=== PATIENT | male | born 1975 | race Caucasian/White ===

== ENCOUNTER 2017-11-12 11:10 | Emergency (ER) | payer MEDICAID, OTHER ==
[~2017-11-12] VITALS: Ht 182.9 cm; Wt 76.7 kg
[~2017-11-12 11:10] MED LIST: HYDR-565 PO; NO HOME MEDS; [UNRECOGNIZED DRUG - CODE] PO
[2017-11-12 11:28] VITALS: BP 124/79
== END 2017-11-12 15:10 | disposition left against medical advice (07) ==
LOC: ER 11:10
DX: S51.851A Open bite of right forearm, initial encounter (principal); W54.0XXA Bitten by dog, initial encounter; Y93.9 Activity, unspecified; Y92.89 Other specified places as the place of occurrence of the external cause; Y99.8 Other external cause status; Z53.21 Procedure and treatment not carried out due to patient leaving prior to being seen by health care provider

== ENCOUNTER 2019-01-07 14:09 | Inpatient (IN) | payer OTHER ==
[~2019-01-07] VITALS: Ht 182.9 cm; Wt 81.8 kg
[~2019-01-07 14:09] MED LIST changes: +HYDR-4353 PO; -HYDR-565 PO
[2019-01-07 14:51] LABS: BASOPHILS # (AUTO) 0.1 X10'3 (0-0.2); BASOPHILS % (AUTO) 0.4 % (0-1); EOSINOPHILS # (AUTO) 0.2 X10'3 (0-0.9); EOSINOPHILS % (AUTO) 1.2 % (0-6); HEMATOCRIT 40.6 % (42.0-52.0); HEMOGLOBIN 13.6 g/dl (14.0-17.9); LYMPHOCYTES # (AUTO) 1.8 X10'3 (1.1-4.8); MEAN CORPUSCULAR HEMOGLOBIN 29.5 PG (27.0-31.0); MEAN CORPUSCULAR HGB CONC 33.5 g/dL (33.0-36.5); MONOCYTES # (AUTO) 1.2 X10'3 (0-0.9); MONOCYTES % (AUTO) 8.6 % (2-12); NEUTROPHILS # (AUTO) 10.8 X10'3 (1.8-7.7); NEUTROPHILS % (AUTO) 76.8 % (42-75); PLATELET COUNT 358 X10'3 (140-440); RED BLOOD COUNT 4.61 X10'6 (4.70-6.10); RED CELL DISTRIBUTION WIDTH 12.8 % (11.5-14.5)
[2019-01-07 15:00] LABS: ALANINE AMINOTRANSFERASE 22 U/L (12-78); ALBUMIN 3.2 G/DL (3.4-5.0); ALBUMIN/GLOBULIN RATIO 0.7 (1.1-1.5); ALKALINE PHOSPHATASE 80 IU/L (46-116); ANION GAP 6 (8-16); ASPARTATE AMINO TRANSFERASE 13 U/L (10-37); BILIRUBIN,TOTAL 0.3 MG/DL (0.1-1.0); BLOOD UREA NITROGEN 23 MG/DL (7-18); BUN/CREATININE RATIO 23.7 (5.4-32.0); CALCIUM 9.1 MG/DL (8.5-10.1); CHLORIDE 100 MMOL/L (99-107); CREATININE 0.97 MG/DL (0.60-1.10); GLUCOSE 124 MG/DL (70-104); POTASSIUM 4.4 MMOL/L (3.5-5.1); SODIUM 137 MMOL/L (135-145); TOTAL CARBON DIOXIDE 31.1 MMOL/L (24-32); TOTAL PROTEIN 7.6 G/DL (6.4-8.2); eGFR 84 ML/MIN
[2019-01-07 15:22] LABS: PARTIAL THROMBOPLASTIN TIME 31 SECONDS (22-32)
[2019-01-07] MEDS ORDERED: vancomycin/NS 1 GM ADD-VANTAGE 250 ML IV ONE (15:45)
--- NOTE | 2019-01-07 16:04 | NUR ---
culture obtained left foot small toe, sent to lab
[2019-01-07] MEDS ORDERED: magnesium Cl slow-release 64mg tablet PO PRN (16:15)
[2019-01-07] MEDS ORDERED: HYDROcodone/acetaminophen 5mg/325mg tablet PO PRN (16:15)
[2019-01-07] MEDS ORDERED: magnesium hydroxide 30ml (MOM) UD suspension PO PRN (16:15)
[2019-01-07] MEDS ORDERED: mag hydrox/Alum hydrox/simeth 30ml oral suspension PO PRN (16:15)
[2019-01-07] MEDS ORDERED: magnesium 2GM in 50ml NS 50 ML IV PRN (16:15)
[2019-01-07] MEDS ORDERED: magnesium 4gm in 100ml NS 100 ML IV PRN (16:15)
[2019-01-07] MEDS ORDERED: ondansetron/PF 4mg/2ml inj IV PRN (16:15)
[2019-01-07] MEDS ORDERED: potassium CL 10mEq/100ml bag 100 ML IV PRN ×2 (16:15)
[2019-01-07] MEDS ORDERED: acetaminophen 325mg tablet PO PRN ×2 (16:15)
[2019-01-07] MEDS ORDERED: potassium Cl 20 mEq SR tablet PO PRN ×2 (16:15)
[2019-01-07] MEDS: K and/or MAG REPLACEMENT MC SCH (16:15)
[2019-01-07] MEDS ORDERED: morphine 2 MG/ML inj. syringe IV PRN (16:15)
[2019-01-07 17:04] LABS: CLARITY,URINE CLEAR (Clear); COLOR,URINE YELLOW (Yellow); GLUCOSE, URINE NEGATIVE (Neg); KETONES,URINE NEGATIVE (Neg); LEUKOCYTE ESTERASE ,URINE NEGATIVE (Neg); NITRITES, URINE NEGATIVE (Neg); OCCULT BLOOD,URINE MODERATE (Neg); PROTEIN,URINE NEGATIVE (Neg); UROBILINOGEN,URINE 0.2 E.U/dL (0.2-1.0)
[2019-01-07 17:05] LABS: HEMOGLOBIN A1C 5.4 % (4.5-6.2)
[2019-01-07 17:16] LABS: UA COLLECTION TYPE VOIDED
[2019-01-07 17:19] LABS: BACTERIA,URINE NONE SEEN /HPF (Neg); MUCUS STRANDS MODERATE /LPF (Neg); SQUAMOUS EPITHELIAL CELL,UR FEW /LPF (FEW); WBC,URINE 0-4 /HPF (0-4)
[2019-01-07] MEDS: normal saline 1000ml 1,000 ML IV SCH (17:47)
--- NOTE | 2019-01-07 18:12 | NUR ---
pt being released from police custudy, [facility]
[2019-01-07 18:36] LABS: URINE AMPHETAMINE SCREEN NEGATIVE (Neg); URINE BARBITUATE SCREEN NEGATIVE (Neg); URINE BENZODIAZEPINES SCREEN NEGATIVE (Neg); URINE CANNABINOID SCREEN NEGATIVE (Neg); URINE COCAINE SCREEN NEGATIVE (Neg); URINE METHADONE SCREEN NEGATIVE (Neg); URINE OPIATE SCREEN NEGATIVE (Neg); URINE PHENCYCLIDINE SCREEN NEGATIVE (Neg)
[2019-01-07] MEDS: morphine 2 MG/ML inj. syringe IV PRN ×2 (18:43→22:49)
[2019-01-07 20:00] VITALS: BP 156/100
[2019-01-07] MEDS: heparin, porcine 5000 units/ml vial SQ SCH (20:06)
[2019-01-07] MEDS: HYDROcodone/acetaminophen 10/325mg tab PO PRN (20:16)
[2019-01-07] MEDS: cefepime 1GM/NS ADD-VANTAGE 100 ML IV SCH ×2 (20:50→23:57)
[2019-01-07 22:11] VITALS: BP 136/82
--- NOTE | 2019-01-07 23:57 | NUR ---
Spoke with pharmacist regarding retiming Maxipime because first dose was not given until 2100 when med was scheduled for 1615. the Pharmacist stated they don't like to retime meds to hold midnight dose and resume schedule as normal
[2019-01-08] VITALS (9 sets, daily range): BP systolic 108–160; BP diastolic 57–100
[2019-01-08] MEDS: VANCOmycin 1250MG/NS 250ml Bag 250 ML IV SCH ×3 (00:11→16:00)
[2019-01-08] MEDS: HYDROcodone/acetaminophen 10/325mg tab PO PRN ×4 (01:11→20:23)
[2019-01-08] MEDS: normal saline 1000ml 1,000 ML IV SCH ×3 (02:15→22:15)
[2019-01-08] MEDS: morphine 2 MG/ML inj. syringe IV PRN ×3 (03:15→16:49)
--- NOTE | 2019-01-08 06:16 | NUR ---
Gave report to Irma CARDONA pt is resting on RA in no apparent distress, call light and items of freq use within reach.
--- NOTE | 2019-01-08 06:17 | NUR ---
Patient in room ORTHO 4011. I have received report from Reina CARDONA and had the opportunity to ask questions and assume patient care.
[2019-01-08 06:19] LABS: BASOPHILS # (AUTO) 0.1 X10'3 (0-0.2); BASOPHILS % (AUTO) 0.7 % (0-1); EOSINOPHILS # (AUTO) 0.3 X10'3 (0-0.9); EOSINOPHILS % (AUTO) 2.1 % (0-6); HEMOGLOBIN 12.1 g/dl (14.0-17.9); LYMPHOCYTES # (AUTO) 3.2 X10'3 (1.1-4.8); LYMPHOCYTES % (AUTO) 24.7 % (21-51); MEAN CORPUSCULAR HEMOGLOBIN 29.5 PG (27.0-31.0); MEAN CORPUSCULAR HGB CONC 33.7 g/dL (33.0-36.5); MEAN CORPUSCULAR VOLUME 87.4 FL (78-98); MEAN PLATELET VOLUME 8.2 FL (7.4-10.4); MONOCYTES # (AUTO) 1.5 X10'3 (0-0.9); MONOCYTES % (AUTO) 11.3 % (2-12); NEUTROPHILS % (AUTO) 61.2 % (42-75); PLATELET COUNT 347 X10'3 (140-440); RED BLOOD COUNT 4.11 X10'6 (4.70-6.10); RED CELL DISTRIBUTION WIDTH 12.4 % (11.5-14.5)
[2019-01-08 06:37] LABS: ALANINE AMINOTRANSFERASE 21 U/L (12-78); ALBUMIN 2.8 G/DL (3.4-5.0); ALBUMIN/GLOBULIN RATIO 0.8 (1.1-1.5); ALKALINE PHOSPHATASE 77 IU/L (46-116); ANION GAP 8 (8-16); ASPARTATE AMINO TRANSFERASE 18 U/L (10-37); BILIRUBIN,TOTAL 0.2 MG/DL (0.1-1.0); BLOOD UREA NITROGEN 18 MG/DL (7-18); BUN/CREATININE RATIO 18.2 (5.4-32.0); CALCIUM 8.6 MG/DL (8.5-10.1); CHLORIDE 102 MMOL/L (99-107); CREATININE 0.99 MG/DL (0.60-1.10); GLUCOSE 85 MG/DL (70-104); MAGNESIUM 1.8 MG/DL (1.5-2.4); PHOSPHORUS 3.6 MG/DL (2.3-4.5); POTASSIUM 3.6 MMOL/L (3.5-5.1); SODIUM 139 MMOL/L (135-145); TOTAL CARBON DIOXIDE 28.7 MMOL/L (24-32); TOTAL PROTEIN 6.5 G/DL (6.4-8.2); eGFR 82 ML/MIN
[2019-01-08] MEDS: cefepime 1GM/NS ADD-VANTAGE 100 ML IV SCH ×2 (07:15→16:13)
[2019-01-08] MEDS: K and/or MAG REPLACEMENT MC SCH (08:00)
[2019-01-08] MEDS: heparin, porcine 5000 units/ml vial SQ SCH ×2 (08:00→20:22)
--- NOTE | 2019-01-08 08:30 | NUR ---
Called [facility] concerned if patient was still in custody due to patient being admitted in handcuffs per notes, Patient is a flight risk wanting a cigarette. The [facility] stated he was not in custody.
[2019-01-08] MEDS: LORazepam 1 MG tablet PO PRN ×2 (09:03→16:13)
[2019-01-08] MEDS: diphenhydrAMINE 25mg capsule PO PRN ×2 (09:07→16:49)
--- NOTE | 2019-01-08 11:28 | NUR ---
Pt admit with sepsis secondary to the left foot cellulitis. Ortho surgeon consulted s/p MRI with findings of osteomyelitis of the small toe phalanges. To go to OR for left small toe amputation. Pt with regular diet order with documented 100% PO intake meeting nutrient needs. Will continue to follow and monitor need for ONS post-op. Addendum: 01/08/19 at [address] Amended: Links added.
[2019-01-08] MEDS ORDERED: ringers solution, lacted 1,000 ML IV SCH (13:46)
[2019-01-08] MEDS ORDERED: proCHLORperazine 10 MG/2 ml inj IV PRN (13:50)
[2019-01-08] MEDS ORDERED: meperidine/PF 25mg/ml syringe IV PRN ×3 (13:50)
[2019-01-08] MEDS ORDERED: morphine 4 MG/ML inj SYRINge IV PRN ×2 (13:50)
[2019-01-08] MEDS ORDERED: ondansetron/PF 4mg/2ml inj IV PRN (13:50)
[2019-01-08] MEDS ORDERED: BUPIVAcaine/PF 2.5 mg/ml (0.25%) 30ml vial ONE (16:07)
[2019-01-08] MEDS ORDERED: dexamethasone sod phosphate 10mg/ml inj ONE (17:00)
[2019-01-08] MEDS ORDERED: sevoflurane 250ml liquid IH ONE (17:00)
[2019-01-08] MEDS ORDERED: ondansetron/PF 4mg/2ml inj ONE (17:00)
[2019-01-08] MEDS ORDERED: midazolam 2 mg/2 ml injection ONE (17:08)
[2019-01-08] MEDS ORDERED: fentaNYL/PF 50MCG/1 ML 2ML syringe ONE (17:08)
[2019-01-08] MEDS ORDERED: LIDOcaine 2% (20mg/ml) 5ml vial ONE (17:09)
[2019-01-08] MEDS ORDERED: propofol inj 20 ML IV ONE (17:09)
[2019-01-08] MEDS ORDERED: ketorolac trometh. 30mg/ml inj. ONE (17:38)
--- NOTE | 2019-01-08 17:53 | NUR ---
Received from OR via , accompanied by Anesthesiologist DR VAZQUEZ and report given by Anesthesiolgist. AWAKENS TO VOICE. VITALS STABLE. DRESSING DI. SEUN PAIN. TOES WARM AND PINK.
--- NOTE | 2019-01-08 18:00 | NUR ---
Report received from Recovery room nurse and pt arrived asleep. 2 L NC, IV right arm with IV fluids going. Left foot wrapped in Mckay wrap pt able to move great toe. VS started. Addendum: 01/09/19 at 0520 by Bobbi Sawyer RN Amended: Links added.
[2019-01-08] MEDS ORDERED: cefepime 1GM/NS ADD-VANTAGE 100 ML IV ONE (18:30)
--- NOTE | 2019-01-08 18:35 | NUR ---
Problems reprioritized. Patient report given, questions answered & plan of care reviewed with Bobbi CARDONA.
--- NOTE | 2019-01-08 18:43 | NUR ---
Report called to receiving nurse. Transferred via BED Belongings . Special Issues communicated to receiving nurse. AWAKE AND ORIENTED. VITALS STABLE DRESSING DI. SEUN PAIN. TO SURGICAL RM 4014R AT THIS TIME.
[2019-01-08] MEDS: lactobacillus rhamnosus 10,000 MMU CELLS/CAPSULE PO SCH (20:22)
[2019-01-08] MEDS ORDERED: VANCOMYCIN LEVEL IV ONE (23:30)
[2019-01-09] MEDS: cefepime 1GM/NS ADD-VANTAGE 100 ML IV SCH ×3 (00:03→16:12)
[2019-01-09] MEDS: VANCOmycin 1250MG/NS 250ml Bag 250 ML IV SCH ×3 (00:44→17:04)
[2019-01-09 02:00] VITALS: BP 118/61
[2019-01-09] MEDS: HYDROcodone/acetaminophen 10/325mg tab PO PRN ×5 (04:13→20:03)
[2019-01-09 06:00] VITALS: BP 150/97
--- NOTE | 2019-01-09 06:28 | NUR ---
Problems reprioritized. Patient report given, questions answered & plan of care reviewed with Irma CARDONA. Addendum: 01/09/19 at 0628 by Bobbi Sawyer RN Amended: Links added.
[2019-01-09 06:40] LABS: BASOPHILS # (AUTO) 0.1 X10'3 (0-0.2); BASOPHILS % (AUTO) 0.5 % (0-1); EOSINOPHILS % (AUTO) 0 % (0-6); HEMATOCRIT 38.3 % (42.0-52.0); HEMOGLOBIN 12.8 g/dl (14.0-17.9); LYMPHOCYTES # (AUTO) 1.4 X10'3 (1.1-4.8); LYMPHOCYTES % (AUTO) 12.4 % (21-51); MEAN CORPUSCULAR HGB CONC 33.3 g/dL (33.0-36.5); MEAN CORPUSCULAR VOLUME 87.2 FL (78-98); MEAN PLATELET VOLUME 8.1 FL (7.4-10.4); MONOCYTES # (AUTO) 0.2 X10'3 (0-0.9); MONOCYTES % (AUTO) 2.2 % (2-12); NEUTROPHILS # (AUTO) 9.4 X10'3 (1.8-7.7); NEUTROPHILS % (AUTO) 84.9 % (42-75); PLATELET COUNT 397 X10'3 (140-440); RED BLOOD COUNT 4.39 X10'6 (4.70-6.10); RED CELL DISTRIBUTION WIDTH 12.6 % (11.5-14.5); WHITE BLOOD COUNT 11.1 X10'3 (4.5-11.0)
--- NOTE | 2019-01-09 06:58 | NUR ---
Patient in room ORTHO 4013. I have received report from Bobbi CARDONA and had the opportunity to ask questions and assume patient care.
[2019-01-09 07:03] LABS: ALANINE AMINOTRANSFERASE 21 U/L (12-78); ALBUMIN 2.7 G/DL (3.4-5.0); ALBUMIN/GLOBULIN RATIO 0.7 (1.1-1.5); ALKALINE PHOSPHATASE 73 IU/L (46-116); ANION GAP 8 (8-16); ASPARTATE AMINO TRANSFERASE 14 U/L (10-37); BILIRUBIN,TOTAL 0.3 MG/DL (0.1-1.0); BLOOD UREA NITROGEN 18 MG/DL (7-18); BUN/CREATININE RATIO 21.2 (5.4-32.0); CALCIUM 8.8 MG/DL (8.5-10.1); CHLORIDE 103 MMOL/L (99-107); CREATININE 0.85 MG/DL (0.60-1.10); GLUCOSE 151 MG/DL (70-104); MAGNESIUM 1.9 MG/DL (1.5-2.4); PHOSPHORUS 3.3 MG/DL (2.3-4.5); POTASSIUM 4.3 MMOL/L (3.5-5.1); SODIUM 137 MMOL/L (135-145); TOTAL CARBON DIOXIDE 25.9 MMOL/L (24-32); TOTAL PROTEIN 6.8 G/DL (6.4-8.2); eGFR > 90 ML/MIN
[2019-01-09] MEDS: heparin, porcine 5000 units/ml vial SQ SCH ×2 (07:41→20:03)
[2019-01-09] MEDS: lactobacillus rhamnosus 10,000 MMU CELLS/CAPSULE PO SCH ×2 (07:42→20:03)
[2019-01-09] MEDS: K and/or MAG REPLACEMENT MC SCH (08:00)
[2019-01-09] MEDS: normal saline 1000ml 1,000 ML IV SCH ×2 (08:15→20:07)
[2019-01-09 10:00] VITALS: BP_SYST 125; BP_SYST 131; BP_DIAS 77; BP_DIAS 88
[2019-01-09] MEDS: LORazepam 1 MG tablet PO PRN (11:04)
--- NOTE | 2019-01-09 14:47 | NUR ---
Patient unhooked himself from the IV. Hooked back up to IV. This is the third time his IV has been unhooked from him for no reason.
[2019-01-09 18:00] VITALS: BP 119/60
--- NOTE | 2019-01-09 18:17 | NUR ---
Problems reprioritized. Patient report given, questions answered & plan of care reviewed with KRISTIN CARDONA.
--- NOTE | 2019-01-09 18:39 | NUR ---
Patient in room ORTHO 4013. I have received report from BRENDAN Solis and had the opportunity to ask questions and assume patient care. Addendum: 01/09/19 at 1839 by Lindsey Talavera RN Amended: Links added.
--- NOTE | 2019-01-09 21:26 | NUR ---
patient left AMA, Dr. Lance is aware, explained risks and consequences in leaving the hospital at this time. IV d/c and patient left with belongings.
[2019-01-12] MEDS ORDERED: HYDR-4383 PO (11:33)
[2019-01-12] MEDS ORDERED: AMOX-580 PO (11:33)
== END 2019-01-09 21:30 | disposition left against medical advice (07) | DRG 854 ==
LOC: ER 14:10 → EEVIPCON 20:37 → ORTHO 4S 20:37
PROVIDERS: ADMIT Family Medicine; ATTEND Family Medicine
PROC: 0Y6Y0Z0 Detachment at Left 5th Toe, Complete, Open Approach (ICD-10-PCS; principal; 2019-01-08 17:00)
DX: A41.9 Sepsis, unspecified organism (principal); L02.612 Cutaneous abscess of left foot; I96 Gangrene, not elsewhere classified; M86.172 Other acute osteomyelitis, left ankle and foot; F15.10 Other stimulant abuse, uncomplicated; F17.210 Nicotine dependence, cigarettes, uncomplicated; Z53.21 Procedure and treatment not carried out due to patient leaving prior to being seen by health care provider; L03.032 Cellulitis of left toe; M65.862 Other synovitis and tenosynovitis, left lower leg; M79.5 Residual foreign body in soft tissue; Z86.14 Personal history of Methicillin resistant Staphylococcus aureus infection; Z88.7 Allergy status to serum and vaccine; Z71.6 Tobacco abuse counseling; Z71.51 Drug abuse counseling and surveillance of drug abuser
CPT/HCPCS: 96365; 96366; 96372; 99285; Z7506; 36415; 73630; 73721; 80053; 80202; 80305; 81001; 82948; 83036; 83605; 83735; 84100; 84145; 85025; 85610; 85730; 87040; 87070; 87077; 87081; 87186; A4215; A4618; A6222; A6446; A6449; A7000; G0378; J0692; J1100; J1644; J1885; J2001; J2250; J2270; J2405; J2704; J3010; J3370; J3490; J7030; J7120; Q0163

== ENCOUNTER 2019-01-26 22:17 | Emergency (ER) | payer MEDICAID ==
[~2019-01-26] VITALS: Ht 182.9 cm; Wt 77.0 kg
[~2019-01-26 22:17] MED LIST changes: +AMOX-580 PO; -HYDR-4353 PO; +HYDR-4383 PO; -NO HOME MEDS; -[UNRECOGNIZED DRUG - CODE] PO
[2019-01-26 23:59] LABS: BASOPHILS # (AUTO) 0.1 X10'3 (0-0.2); BASOPHILS % (AUTO) 0.4 % (0-1); EOSINOPHILS # (AUTO) 0.1 X10'3 (0-0.9); EOSINOPHILS % (AUTO) 0.4 % (0-6); HEMATOCRIT 34.7 % (42.0-52.0); HEMOGLOBIN 11.8 g/dl (14.0-17.9); LYMPHOCYTES # (AUTO) 1.3 X10'3 (1.1-4.8); LYMPHOCYTES % (AUTO) 10.3 % (21-51); MEAN CORPUSCULAR HEMOGLOBIN 29.4 PG (27.0-31.0); MEAN CORPUSCULAR VOLUME 86.4 FL (78-98); MEAN PLATELET VOLUME 8.2 FL (7.4-10.4); MONOCYTES # (AUTO) 0.9 X10'3 (0-0.9); NEUTROPHILS # (AUTO) 10.2 X10'3 (1.8-7.7); NEUTROPHILS % (AUTO) 81.9 % (42-75); PLATELET COUNT 269 X10'3 (140-440); RED BLOOD COUNT 4.02 X10'6 (4.70-6.10); RED CELL DISTRIBUTION WIDTH 12.7 % (11.5-14.5); WHITE BLOOD COUNT 12.5 X10'3 (4.5-11.0)
[2019-01-27 00:16] LABS: ALANINE AMINOTRANSFERASE 22 U/L (12-78); ALBUMIN 3.4 G/DL (3.4-5.0); ALBUMIN/GLOBULIN RATIO 0.9 (1.1-1.5); ALKALINE PHOSPHATASE 73 IU/L (46-116); ANION GAP 8 (8-16); ASPARTATE AMINO TRANSFERASE 10 U/L (10-37); BILIRUBIN,TOTAL 0.5 MG/DL (0.1-1.0); BLOOD UREA NITROGEN 13 MG/DL (7-18); BUN/CREATININE RATIO 13.4 (5.4-32.0); CALCIUM 8.8 MG/DL (8.5-10.1); CHLORIDE 104 MMOL/L (99-107); CREATININE 0.97 MG/DL (0.60-1.10); GLUCOSE 86 MG/DL (70-104); POTASSIUM 3.6 MMOL/L (3.5-5.1); SODIUM 139 MMOL/L (135-145); TOTAL CARBON DIOXIDE 26.9 MMOL/L (24-32); TOTAL PROTEIN 7.2 G/DL (6.4-8.2); eGFR 84 ML/MIN
--- NOTE | 2019-01-27 00:54 | NUR ---
Patient and family updated on POC and wait time. Patient requests a blanket wich is provided.
[2019-01-27] MEDS ORDERED: ondansetron 4mg rapidly disintigrating tab PO ONE (01:25)
[2019-01-27] MEDS ORDERED: DOXYCYCLINE 100MG CAPSULE PO STA (01:25)
[2019-01-27] MEDS ORDERED: cephalexin 250mg capsule PO ONE (01:25)
[2019-01-27] MEDS ORDERED: CEPH-572 PO (01:41)
[2019-01-27] MEDS ORDERED: ONDA8TAB6 PO (01:41)
[2019-01-27] MEDS ORDERED: DOXY100C43 PO (01:41)
[2019-01-27 02:11] VITALS: BP 142/83
== END 2019-01-27 02:13 | disposition home or self-care (01) ==
LOC: ER 22:18
DX: L03.032 Cellulitis of left toe (principal); F15.90 Other stimulant use, unspecified, uncomplicated; F10.99 Alcohol use, unspecified with unspecified alcohol-induced disorder; Z88.7 Allergy status to serum and vaccine; Z79.899 Other long term (current) drug therapy; Y90.9 Presence of alcohol in blood, level not specified
CPT/HCPCS: 36415; 73660; 80053; 83605; 84145; 85025; 87040; 99284; J2405

== ENCOUNTER 2020-03-23 12:41 | Emergency (ER) | payer MEDICAID ==
[~2020-03-23] VITALS: Ht 182.9 cm; Wt 82.3 kg
[~2020-03-23 12:41] MED LIST changes: +ONDA8TAB6 PO
[2020-03-23 12:42] VITALS: BP 144/93
== END 2020-03-23 14:13 | disposition home or self-care (01) ==
LOC: ER 12:41
DX: L02.415 Cutaneous abscess of right lower limb (principal); F15.90 Other stimulant use, unspecified, uncomplicated; Z72.89 Other problems related to lifestyle; Z79.899 Other long term (current) drug therapy
CPT/HCPCS: 10060; 99282